=== PATIENT | female | born 1970 | race Caucasian/White ===

== ENCOUNTER 2017-06-07 00:39 | Emergency (ER) | payer OTHER ==
[~2017-06-07] VITALS: Ht 172.7 cm; Wt 80.0 kg
[2017-06-07 00:42] VITALS: BP 163/72; PULSE 109; RESP 18; TEMP 97.7; O2SAT 98
[2017-06-07] MEDS ORDERED: CLAR10TA7 (00:57)
--- NOTE | 2017-06-07 01:11 | PD ---
HPI Chief Complaint: Injury Time Seen by Provider: 01:07 Travel History International Travel<30 days: No Contact w/Intl Traveler<30days: No Traveled to known affect area: No History of Present Illness HPI 47-year-old female presents for evaluation after mechanical fall. Prior to arrival she tripped and fell, landing on her right forearm. She now has proximal right forearm and elbow pain which is aching, worse with movement. She denies any other injuries. She denies any numbness, tingling, weakness. She has no other complaints at this time. [facility] Social History Alcohol Use: Yes Tobacco Use: No Allergies-Medications (Allergen,Severity, Reaction): Coded Allergies: No Known Allergies (Unverified , 06/07/17) Reported Meds & Prescriptions Reported Meds & Active Scripts Active Reported Claritin (Loratadine) 10 Mg Tablet Review of Systems Except as stated in HPI: all other systems reviewed are Neg Physical Exam Narrative GENERAL: Well-developed well-nourished female no acute distress SKIN: Warm and dry. HEAD: Atraumatic. Normocephalic. EYES: Pupils equal and round. No scleral icterus. No injection or drainage. ENT: No nasal bleeding or discharge. Mucous membranes pink and moist. NECK: Trachea midline. No JVD. CARDIOVASCULAR: Regular rate and rhythm. No murmur appreciated. RESPIRATORY: No accessory muscle use. Clear to auscultation. Breath sounds equal bilaterally. MUSCULOSKELETAL: No obvious deformities. Tender to palpation proximal right forearm and elbow. There is pain with range of motion activities in the right arm. There is some limited flexion and extension of the right forearm. Distal sensation is preserved in the median, radial, ulnar nerve distributions. Capillary refill less than 2 seconds all digits right hand. 2+ radial pulse. NEUROLOGICAL: Awake and alert. No obvious cranial nerve deficits. Motor grossly within normal limits. Normal speech. Data Data Last Documented VS Vital Signs Date Time Temp Pulse Resp B/P (MAP) Pulse Ox O2 Delivery O2 Flow Rate FiO2 06/07/17 00:42 97.7 109 18 163/72 (102) 98 Orders Orders Forearm (2vws) (06/07/17 ) Elbow, Complete (4 Vws) (06/07/17 ) Ed Discharge Order (06/07/17 03:34) Support Splint (06/07/17 03:34) MDM Medical Decision Making Medical Screen Exam Complete: Yes Emergency Medical Condition: Yes Medical Record Reviewed: Yes Differential Diagnosis Fracture, sprain, strain, contusion Narrative Course X-ray imaging of the right forearm and elbow were obtained revealing no acute abnormalities. The patient will be given a sling for support. Diagnosis Primary Impression: Strain of right forearm Additional Instructions: Tylenol or Motrin for pain, rest, ice several times a day 20 minutes at a time, follow-up with her primary care physician. Med/Other Pt SpecificInfo: No Change to Meds Disposition: 01 DISCHARGE HOME Condition: Stable David Scales Jun 07, 2017 01:11
--- NOTE | 2017-06-07 01:55 | RADRPT ---
EXAM DATE/TIME: 06/07/2017 01:16 [facility] COMPARISON: No previous studies available for comparison. INDICATIONS : Right distal humerus and proximal ulna radius pain from trauma from a fall. MEDICAL HISTORY : None. SURGICAL HISTORY : None. ENCOUNTER: Initial ACUITY: 1 day PAIN SCORE: 10/10 LOCATION: Right elbow FINDINGS: Two view examination of the right forearm demonstrates no evidence of fracture or dislocation. Bony mineralization is normal. The soft tissue structures are intact. CONCLUSION: Intact forearm. Ender Melchor MD on June 07, 2017 at 1:53 Board Certified Radiologist. This report was verified electronically.
--- NOTE | 2017-06-07 01:55 | RADRPT ---
EXAM DATE/TIME: 06/07/2017 01:20 [facility] COMPARISON: No previous studies available for comparison. INDICATIONS : Right elbow pain from a fall. MEDICAL HISTORY : None. SURGICAL HISTORY : None. ENCOUNTER: Initial ACUITY: 1 day PAIN SCORE: 10/10 LOCATION: Right elbow FINDINGS: Multiple view examination of the right elbow demonstrates no soft tissue swelling, joint effusion, or fracture. The osseous structures are in normal alignment. Bony mineralization is normal. CONCLUSION: Intact right elbow. Ender Melchor MD on June 07, 2017 at 1:53 Board Certified Radiologist. This report was verified electronically.
== END 2017-06-07 03:49 | disposition home or self-care (01) ==
LOC: NEPD 00:39
DX: S56.911A Strain of unspecified muscles, fascia and tendons at forearm level, right arm, initial encounter (principal); W01.0XXA Fall on same level from slipping, tripping and stumbling without subsequent striking against object, initial encounter
CPT/HCPCS: 73080; 73090; 99283